=== PATIENT | female | born 1945 | race Caucasian/White ===

== ENCOUNTER 2025-06-10 11:20 | Emergency (ER) | payer MEDICARE, SELFPAY ==
[2025-06-10 11:32] VITALS: BP 150/88; PULSE 70; RESP 17; TEMP 36.7; O2SAT 96; BMI 25.3
--- NOTE | 2025-06-10 11:51 | CTR_ITS ---
PROCEDURE INFORMATION: Exam: CT Head Without Contrast Exam date and time: 06/10/2025 12:10 PM Age: 79 years old Clinical indication: Injury or trauma; Fall; Blunt trauma (contusions or hematomas); Hit back of head on bathtub TECHNIQUE: Imaging protocol: Computed tomography of the head without contrast. Radiation optimization: All CT scans at this facility use at least one of these dose optimization techniques: automated exposure control; mA and/or kV adjustment per patient size (includes targeted exams where dose is matched to clinical indication); or iterative reconstruction. COMPARISON: No relevant prior studies available. RADIATION DOSE METRICS: Total DLP (mGy-cm): 1112.17 FINDINGS: Brain: Anterior falx subdural hematoma measuring 2 mm. Right tentorial subdural hematoma measuring 1-2 mm in thickness. Small amount of subarachnoid hemorrhage noted at the vertex overlying the left frontal region, coronal image 50. Periventricular and deep white matter hypodensities compatible with chronic microvascular ischemic changes. Focal aneurysm or possible hemorrhage at the suprasellar cistern, the latter is favored. Correlation with CTA is recommended. Cerebral ventricles: No ventriculomegaly. Paranasal sinuses: Visualized sinuses are unremarkable. No fluid levels. Mastoid air cells: No mastoid effusion. Bones: Unremarkable. No acute fracture. Soft tissues: Occipital scalp hematoma. CT/CT head wo con* [id number] IMPRESSION: 1. Anterior falx subdural hematoma measuring 2 mm. No midline shift. 2. Right tentorial subdural hematoma measuring 1-2 mm in thickness. 3. Small amount of subarachnoid hemorrhage noted at the vertex overlying the left frontal region . 4. Focal aneurysm or possible hemorrhage at the suprasellar cistern, the latter is favored. Correlation with CTA is recommended.
--- NOTE | 2025-06-10 11:51 | CTR_ITS ---
PROCEDURE INFORMATION: Exam: CT Cervical Spine Without Contrast Exam date and time: 06/10/2025 12:10 PM Age: 79 years old Clinical indication: Injury or trauma; Fall; Blunt trauma TECHNIQUE: Imaging protocol: Computed tomography of the cervical spine without contrast. Radiation optimization: All CT scans at this facility use at least one of these dose optimization techniques: automated exposure control; mA and/or kV adjustment per patient size (includes targeted exams where dose is matched to clinical indication); or iterative reconstruction. COMPARISON: CT head wo con* [id number] 06/10/2025 12:10 PM RADIATION DOSE METRICS: Total DLP (mGy-cm): 194 FINDINGS: Bones: Degenerative changes including osteophytes, disc space narrowing, endplate spurring, and facet hypertrophy. No acute fracture. Lungs: No pneumothorax. Soft tissues: Unremarkable. CT/CT cervical spin wo con* [id number] IMPRESSION: No acute cervical spine fracture.
[2025-06-10 12:16] LABS: Hematocrit 40.3 % (36-47); Hemoglobin 13.00 g/dL (11.27-16.99); Mean Corpuscular HGB Conc 32.3 g/dL (30-55); Mean Corpuscular Hemoglobin 29.8 pg (27-33); Mean Corpuscular Volume 92.4 fl (85-98); Nucleated Red Blood Cells % 0 %; Platelet Count 217 10^3/cmm (157-399); Red Blood Count 4.36 10^6/uL (3.85-5.65); White Blood Count 6.74 10^3/uL (3.29-11.43)
[2025-06-10 12:38] LABS: Alanine Aminotransferase 19 U/L (0-33); Albumin Level 3.8 g/dL (3.5-5.2); Alkaline Phosphatase 65 U/L (35-105); Anion Gap 11.0 (5-19); Aspartate Amino Transferase 23 U/L (0-32); Blood Urea Nitrogen 23 mg/dL (8-23); Calcium 10.3 mg/dL (8.5-10.5); Carbon Dioxide 28 mmol/L (22-29); Chloride 101 mmol/L (98-107); Creatinine Clr Calc Pharmacy 46.1383; Globulin 2.1 g/dL (1.3-4.6); Glucose 104 mg/dL (65-115); Osmolality Calculated 286 mOsm/kg (285-295); Potassium 4.0 mmol/L (3.5-5.1); Sodium 136 mmol/L (136-145); Total Protein 5.9 g/dL (6.6-8.7)
--- NOTE | 2025-06-10 12:45 | ED_ITS ---
HPI - Fall 2 General: Chief Complaint: Fall Stated Complaint: fall Time Seen by Provider: 06/10/25 11:43 History of Present Illness: 79-year-old female presents emergency ro om she slipped and fell getting out of the bathtub hit the back of her chest not on any anticoagulants was some confusion afterwards but no complete loss of consciousness. She has been nauseous but no vomiting. Associated symptoms-after fall: Denies abdominal pain, chest pain or neck pain Related Data Allergies Allergy/AdvReac Type Severity Reaction Status Date / Time [id number] Reductase Allergy ADR-Muscle Verified 06/10/25 11:35 Inhibitor Pain Review of Systems 2 Const: Denies: fever(s) or chills Card: Denies: chest pain Resp: Denies: dyspnea GI: Denies: abdominal pain : Denies: dysuria, urinary frequency or urinary urgency Musc: Denies: neck pain or back pain Skin/Breast: Denies: rash Physical Exam 2 Const: GENERAL APPEARANCE: cooperative ORIENTATION/CONSCIOUSNESS: Yes awake, Yes oriented to person, Yes oriented to place and Yes oriented to time HENMT: COMMON NORMALS: normocephalic, atraumatic and hearing grossly normal bilaterally HEAD & SCALP: normocephalic and atraumatic Resp: COMMON NORMALS: normal respiratory effort, No retractions, No use of accessory muscles and clear to auscultation bilaterally AUSCULTATION: clear to auscultation bilaterally Cardio: COMMON NORMALS: regular rate, regular rhythm and No murmurs present (Cardio) RATE: regular rate RHYTHM: regular rhythm GI: COMMON NORMALS: Soft to palpation and No hepatosplenomegaly present A USCULTATION: Yes normoactive bowel sounds PALPATION: Yes Soft to palpation, No Tenderness to palpation present (GI), No Guarding due to palpation present (GI) and Yes No hepatosplenomegaly present Extremity: COMMON NORMALS: normal to inspection, capillary refill normal, no clubbing, cyanosis or edema, no calf tenderness and no pedal edema Neuro: SENSORIUM/ORIENTATION: Yes oriented to person, Yes oriented to place and Yes oriented to time Skin: COMMON NORMALS: no rashes or lesions noted GENERAL SKIN EXAM: no rashes or lesions noted Course 2 Vital Signs: Vital signs: Vital Signs Temperature 98.0 F 06/10/25 11:32 Pulse Rate 70 06/10/25 11:32 Respiratory Rate 17 11/15/25 11:32 Blood Pressure 150/88 06/10/25 11:32 Pulse Oximetry 96 06/10/25 11:32 Oxygen Delivery Me thod Room Air 06/10/25 11:32 MDM - Fall Medical Decision Making Fall with traumatic subdural hematoma as per CT report there is also small area of subarachnoid hemorrhage discussed with family. She is completely stable should not need any blood pressure intervention time as this dictation blood pressure is 122/69 no focal neurologic deficits noted. She has been auto excepted to [facility] for trauma with Dr. Higgins Medical Records I reviewed the patient's medical records. Lab Data I reviewed the patient's lab results. 06/10/25 12:03 06/10/25 12:03 Radiology Impressions Cervical Spine CT 06/10/25 11:51 IMPRESSION: No acute cervical spine fracture. Head CT 06/10/25 11:51 IMPRESSION: 1. Anterior falx subdural hematoma measuring 2 mm. No midline shift. 2. Right tentorial subdural hematoma measuring 1-2 mm in thickness. 3. Small amount of subarachnoid hemorrhage noted at the vertex overlying the left frontal region . 4. Focal aneurysm or possible hemorrhage at the suprasellar cistern, the latter is favored. Correlation with CTA is recommended. ADDENDUM: 06/10/25 1244 THIS REPORT CONTAINS FINDINGS THAT MAY BE CRITICAL TO PATIENT CARE. The findings were verbally communicated via telephone conference with RAIZA Be 1241 pM [employer] on 06/10/2025. The findings were acknowledged and understood. Laboratory Results WBC 6.74 10^3/uL (3.29-11.43) 06/10/25 12:03 RBC 4.36 10^6/uL (3.85-5.65) 06/10/25 12:03 Hgb 13.00 g/dL (11.27-16.99) 06/10/25 12:03 Hct 40.3 % (36-47) 06/10/25 12:03 MCV 92.4 fl (85-98) 06/10/25 12:03 MCH 29.8 pg (27-33) 06/10/25 12:03 MCHC 32.3 g/dL (30-55) 06/10/25 12:03 RDW 13.2 % (12.1-15.1) 06/10/25 12:03 Plt Count 217 10^3/cmm (157-399) 06/10/25 12:03 MPV 10.3 fL (7.4-10.4) 06/10/25 12:03 Neut % (Auto) 69.8 % 06/10/25 12:03 Lymph % (Auto) 21.1 % 06/10/25 12:03 [place] % (Auto) 7.9 % 06/10/25 12:03 Eos % (Auto) 0.6 % 06/10/25 12:03 Baso % (Auto) 0.3 % 06/10/25 12:03 Neut # (Auto) 4.71 10^3/uL (1.8-7.7) 06/10/25 12:03 Lymph # (Auto) 1.4 10^3/uL (0.8-4.8) 06/10/25 12:03 [place] # (Auto) 0.5 10^3/uL (0.2-0.9) 06/10/25 12:03 Eos # (Auto) 0.0 10^3/uL (0.0-0.8) 06/10/25 12:03 Baso # (Auto) 0.0 10^3/uL (0.0-0.1) 06/10/25 12:03 Nucleated RBC % (auto) 0 % 06/10/25 12:03 Nucleated RBCs # 0.0 /100WBC 06/10/25 12:03 Sodium 136 mmol/L (136-145) 06/10/25 12:03 Potassium 4.0 mmol/L (3.5-5.1) 06/10/25 12:03 Chloride 101 mmol/L (98-107) 06/10/25 12:03 Carbon Dioxide 28 mmol/L (22-29) 06/10/25 12:03 Anion Gap 11.0 (5-19) 06/10/25 12:03 BUN 23 mg/dL (8-23) 06/10/25 12:03 Creatinine 0.8 mg/dL (0.5-0.9) 06/10/25 12:03 GFR Calculation Not Reportable 06/10/25 12:03 Glucose 104 mg/dL (65-115) 06/10/25 12:03 Calculated Osmolality 286 mOsm/kg (285-295) 06/10/25 12:03 Calcium 10.3 mg/dL (8.5-10.5) 06/10/25 12:03 Total Bilirubin 0.5 mg/dL (0.15-1.2) 06/10/25 12:03 AST 23 U/L (0-32) 06/10/25 12:03 ALT 19 U/L (0-33) 06/10/25 12:03 Alkaline Phosphatase 65 U/L (35-105) 06/10/25 12:03 Albumin 3.8 g/dL (3.5-5.2) 06/10/25 12:03 Globulin 2.1 g/dL (1.3-4.6) 06/10/25 12:03 All radiology interpretation(s) finalized by discharge Discharge Plan Discharge Patient Disposition: Xfer Short-Term Hosp Clinical Impression: Acute subdural hematoma, Subarachnoid hemorrhage, Fall Condition: Stable Patient Instructions: Opioid Safety, Pain Management, Patient Portal & Mary Instructions Print Language: Syriac Coding Level of Care Code ED Plumber Pipe Fitting for Laura De La Paz
[2025-06-10 13:31] VITALS: BP 124/69; PULSE 65; RESP 17; O2SAT 94
[2025-06-10 14:08] VITALS: BP 135/74; PULSE 61; O2SAT 95
== END 2025-06-10 14:12 | disposition short-term general hospital (02) ==
PROVIDERS: Emergency Provider Family Medicine
DX: S06.5X0A Traumatic subdural hemorrhage without loss of consciousness, initial encounter (principal); S06.6X0A Traumatic subarachnoid hemorrhage without loss of consciousness, initial encounter; W01.0XXA Fall on same level from slipping, tripping and stumbling without subsequent striking against object, initial encounter
CPT/HCPCS: 36415; 70450; 72125; 80053; 85025; 99284